=== PATIENT | male | born 1950 | race Caucasian/White ===

== ENCOUNTER 2020-02-11 11:05 | Outpatient (CLI) | payer MEDICARE, SELFPAY ==
[2020-02-11 12:40] LABS: Prostate Specific Antigen 6.7 ng/mL (< OR = 4.0)
== END 2020-02-11 11:06 | disposition home or self-care (01) ==
LOC: ANHLAB 11:09
PROVIDERS: PCP Family Medicine; Visit Provider Urology
DX: R97.20 Elevated prostate specific antigen [PSA] (principal)
CPT/HCPCS: 36415; 84153